=== PATIENT | male | born 1980 | race Caucasian/White ===

== ENCOUNTER 2017-12-30 23:49 | Emergency (ER) | payer OTHER ==
[~2017-12-30] VITALS: Ht 195.6 cm; Wt 122.5 kg
[2017-12-31 02:25] VITALS: BP 150/78
== END 2017-12-31 02:25 | disposition home or self-care (01) ==
LOC: ED 23:49
DX: S16.1XXA Strain of muscle, fascia and tendon at neck level, initial encounter (principal); S39.012A Strain of muscle, fascia and tendon of lower back, initial encounter; S29.012A Strain of muscle and tendon of back wall of thorax, initial encounter; S29.011A Strain of muscle and tendon of front wall of thorax, initial encounter; S86.912A Strain of unspecified muscle(s) and tendon(s) at lower leg level, left leg, initial encounter; S86.911A Strain of unspecified muscle(s) and tendon(s) at lower leg level, right leg, initial encounter; V89.2XXA Person injured in unspecified motor-vehicle accident, traffic, initial encounter; Y93.I9 Activity, other involving external motion; Y92.411 Interstate highway as the place of occurrence of the external cause; Y99.8 Other external cause status
CPT/HCPCS: 72072; J1885; J2270; Q0162